=== PATIENT | male | born 1965 | race Caucasian/White ===

== ENCOUNTER 2018-03-13 12:18 | Outpatient (RCR) | payer BC, MEDICAID | END 2018-04-02 | disposition home or self-care (01) | LOC: WCC 12:18 | DX: L89.314 Pressure ulcer of right buttock, stage 4 (principal); Z87.891 Personal history of nicotine dependence; E11.9 Type 2 diabetes mellitus without complications; I10 Essential (primary) hypertension; G82.20 Paraplegia, unspecified; Z98.1 Arthrodesis status; Z86.14 Personal history of Methicillin resistant Staphylococcus aureus infection | CPT/HCPCS: 11043 ==

== ENCOUNTER 2018-04-03 10:40 | Outpatient (RCR) | payer BC, MEDICAID | END 2018-05-02 | disposition home or self-care (01) | LOC: WCC 10:40 | DX: L89.154 Pressure ulcer of sacral region, stage 4 (principal); E11.9 Type 2 diabetes mellitus without complications; I10 Essential (primary) hypertension; Z86.14 Personal history of Methicillin resistant Staphylococcus aureus infection | CPT/HCPCS: 11043; 97605 ==

== ENCOUNTER 2018-05-08 09:49 | Outpatient (RCR) | payer BC, MEDICAID | END 2018-06-02 | disposition home or self-care (01) | LOC: WCC 09:49 | DX: L89.154 Pressure ulcer of sacral region, stage 4 (principal); I10 Essential (primary) hypertension; E11.9 Type 2 diabetes mellitus without complications; Z98.1 Arthrodesis status; Z86.14 Personal history of Methicillin resistant Staphylococcus aureus infection; G82.22 Paraplegia, incomplete | CPT/HCPCS: 11044; 20245; 87070; 87181; 87205; 97605 ==

== ENCOUNTER 2018-06-05 10:45 | Outpatient (RCR) | payer BC, MEDICAID | END 2018-07-03 | disposition home or self-care (01) | LOC: WCC 10:45 | DX: L89.154 Pressure ulcer of sacral region, stage 4 (principal); Z98.1 Arthrodesis status; Z87.891 Personal history of nicotine dependence; G82.20 Paraplegia, unspecified; E11.9 Type 2 diabetes mellitus without complications; I10 Essential (primary) hypertension; Z86.14 Personal history of Methicillin resistant Staphylococcus aureus infection | CPT/HCPCS: 11044; 97605 ==